=== PATIENT | female | born 2000 | race Caucasian/White ===

== ENCOUNTER 2018-08-17 11:33 | Emergency (ER) | payer OTHER ==
[~2018-08-17] VITALS: Wt 61.0 kg
[~2018-08-17 11:33] MED LIST: ALBU18HF INHALATION; NO CURRENT MEDS
[2018-08-17 11:36] VITALS: BP 127/89; PULSE 119; RESP 20; Wt 61.0 kg
[2018-08-17] MEDS ORDERED: ACETAMINOPHEN 500 MG TAB PO STA (13:01)
[2018-08-17] MEDS ORDERED: IBUPROFEN 600 MG TAB PO ONE (13:30)
[2018-08-17] MEDS ORDERED: PROMETHAZINE/DM (CUP) PO ONE (13:30)
[2018-08-17] MEDS ORDERED: DOXY100T20 PO (14:14)
[2018-08-17] MEDS ORDERED: D-ME473S2 PO (14:14)
--- NOTE | 2018-08-17 14:29 | ERD ---
ER Documentation Chief Complaint Chief Complaint FEVER COUGH AND CONGESTIO FOR THE PAST 4 DAYS WITH MILD SOB HPI This is a 18-year-old female with a nonsignificant past medical history presents ED with complaints of fever and cough times 4 days. Patient admits to body aches, headaches, cough and shortness of breath with prolonged coughing spells as well as ear pain. Denies chest pain, runny nose, sore throat, nausea, vomiting, diarrhea, constipation, abdominal pain. No known drug allergies. ROS All systems reviewed and are negative except as per history of present illness. Medications Home Meds Active Scripts Dextromethorphan Hb-Promethazine Hcl* (Promethazine DM* Syrup) 473 Ml Syrup, 5 ML PO Q6 PRN for COUGH for 5 Days, ML Prov:SOHA SMITH PA-C 08/17/18 Doxycycline Hyclate* (Doxycycline Hyclate*) 100 Mg Tablet.dr, 100 MG PO BID for 10 Days, TAB Prov:SOHA SMITH PA-C 08/17/18 Albuterol Sulfate* (Ventolin HFA*) 18 Gm Hfa.aer.ad, 2 PUFF INHALATION Q4H, #1 INHALER Prov:ROMMEL TRAN MD 09/15/15 Reported Medications [No Current Meds] No Conflict Check 09/06/09 Allergies Allergies: Coded Allergies: No Known Drug Allergies (Verified Allergy, Mild, 08/17/18) PMhx/Soc Medical and Surgical Hx: pt denies Medical Hx, pt denies Surgical Hx History of Surgery: No Hx Neurological Disorder: No Hx Respiratory Disorders: No Hx Cardiac Disorders: No Hx Miscellaneous Medical Probl: No Hx Alcohol Use: No Hx Substance Use: No Hx Tobacco Use: No FmHx Family History: No diabetes Physical Exam Vitals Vital Signs Date Temp Pulse Resp B/P (MAP) Pulse Ox O2 O2 Flow FiO2 Time Delivery Rate 08/17/18 99.9 13:09 08/17/18 99.9 13:09 08/17/18 99.9 119 20 127/89 98 11:36 (102) Physical Exam Physical Exam Vitals signs: Reviewed by me. General: Well developed, well nourished, in no acute distress. Patient is awake and alert. Head: Normocephalic, atraumatic. Eyes: Normal conjunctiva, Pupils PERRLA, EOM intact grossly ENT: Pharynx is clear, Moist mucous membranes, external ears, nose and mouth normal Neck: Supple, no masses, lymphadenopathy or JVD Respiratory: Clear to auscultation bilaterally with no wheezing, rhonchi, rales, no distress Cardiovascular: RRR, no murmurs, rubs, or gallops Neurologic: Alert and oriented, moving all extremities, normal speech, no focal weakness, no cerebellar signs. Normal mentation Skin: warm and dry, No rash Psych: Normal mood Results 24 hrs Current Medications Medications Dose Sig/Efrain Start Time Status Last (Trade) Ordered Route PRN Stop Time Admin Dose Reason Admin 1,000 mg ONCE STAT 08/17/18 DC 08/17/18 Acetaminophen PO 13:01 13:09 (Tylenol 08/17/18 13:02 Tab) Ibuprofen 600 mg ONCE ONCE 08/17/18 DC 08/17/18 (Motrin) PO 13:30 13:09 08/17/18 13:31 Promethazine 5 ml ONCE ONCE 08/17/18 DC 08/17/18 HCl/ PO 13:30 13:16 Dextromethorp 08/17/18 13:31 andres (Phenergan-Dm ) Procedures/MDM EKG, MONITORS, & DIAGNOSTIC IMAGING: [place] [address] Radiology Main Line: [phone] DIAGNOSTIC IMAGING REPORT Patient: JOCELYN HERNANDEZ : 2000 Age: 18 Sex: F MR #: [id number] DOS: 08/17/18 1301 Ordering MD: SOHA SMITH PA-C Location: [facility] Room/Bed: PROCEDURE: XR Chest PA and Lateral CLINICAL INDICATION: Cough and fever TECHNIQUE: PA and Lateral views of the chest were obtained. COMPARISON: None. FINDINGS: Cardiovascular: The cardiovascular silhouette appears unremarkable. Lung Campbell: A focal patch of air space opacification projects to the left hilum and triangulate cyst to the superior segment of the left lower lobe. The lung campbell are otherwise clear. Pleural Spaces: No pneumothorax is identified and no effusion is evident. Osseous Structures: The osseous structures appear intact. Soft Tissues: The soft tissues appear unremarkable. IMPRESSION: Focal air space opacification involving the superior segment of the left lower lobe. No effusion is evident. Physician Laurie Date Time Electronically viewed and signed by Physician Laurie on 08/17/2018 13:56 RH/ CC: SOHA SMITH PA-C [id number] LAB INTERPRETATION: Flu negative ER COURSE: The patient was given Tylenol, promethazine DM The medication was well tolerated and the patient reports improvement in symptoms. The patient was stable throughout ED course. I kept the patient and/or family informed of laboratory and diagnostic imaging results throughout the emergency room course. The patient was promptly evaluated and a treatment plan was devised based on H&P and other data. This plan was discussed with the patient who agreed and had no further questions or concerns prior to discharge. MEDICAL DECISION MAKING: This is a 18-year-old female presents ED with cough and fever times 4 days. Chest x-ray is remarkable for an opacification of the left lower lung. Will treat patient for pneumonia. Discussed with patient and she feels comfortable with close outpatient follow-up. I do not think that patient needs to be admitted to hospital for IV antibiotics at this time. Patient's vitals are stable she can be managed with close outpatient follow-up. Patient has a normal oxygen saturation of 98%. No evidence of sepsis, meningitis, pleural effusion, pneumothorax, tension pneumothorax, pulmonary embolism, among others. keep seen return to ED with any worsening symptoms DISPOSITION PLAN: We discussed follow up with the patient's primary care doctor within 24 to 48 hours. Patient counseled regarding my diagnostic impression and care plan. Prior to discharge all questions answered. Pt agrees with treatment plan and understands strict return precautions. Precautionary instructions provided including instructions to return to the ER if not improving or for any worsening or changing symptoms or concerns. SPECIALIST FOLLOW UP RECOMMENDED: None Patient has been advised to follow up with primary care in 1-2 days. Disclaimer: Inadvertent spelling and grammatical errors are likely due to EHR/dictation software use and do not reflect on the overall quality of patient care. Also, please note that the electronic time recorded on this note does not necessarily reflect the actual time of the patient encounter. Departure Diagnosis: Primary Impression: Pneumonia Pneumonia type: due to unspecified organism Laterality: unspecified laterality Lung location: unspecified part of lung Qualified Codes: J18.9 - Pneumonia, unspecified organism Condition: Stable Patient Instructions: Pneumonia (Adult) Referrals: COMMUNITY CLINICS YOU HAVE RECEIVED A MEDICAL SCREENING EXAM AND THE RESULTS INDICATE THAT YOU DO NOT HAVE A CONDITION THAT REQUIRES URGENT TREATMENT IN THE EMERGENCY DEPARTMENT. FURTHER EVALUATION AND TREATMENT OF YOUR CONDITION CAN WAIT UNTIL YOU ARE SEEN IN YOUR DOCTORS OFFICE WITHIN THE NEXT 1-2 DAYS. IT IS YOUR RESPONSIBILITY TO MAKE AN APPOINTMENT FOR FOLOW-UP CARE. IF YOU HAVE A PRIMARY DOCTOR --you should call your primary doctor and schedule an appointment IF YOU DO NOT HAVE A PRIMARY DOCTOR YOU CAN CALL OUR PHYSICIAN REFERRAL HOTLINE AT IF YOU CAN NOT AFFORD TO SEE A PHYSICIAN YOU CAN CHOSE FROM THE FOLLOWING [facility] [address] [facility] [facility] [address] [address] [place] [address] [facility] [address] [facility] [address] [facility]. [facility] [address] Additional Instructions: Patient advised to return to the ED immediately for new or worsening symptoms. Patient advised to follow up with primary care provider in the next 24-48 hours. Patient verbalized understanding and agrees with treatment plan and course of action. If patient has no primary care they may follow up with one of the [facility] clinics listed on the following page or one of the options listed below [facility] [address] [place] [id number] or [facility] [address] [place] [address] or [facility] [address] [place] [address] SOHA SMITH PA-C Aug 17, 2018 14:29
== END 2018-08-17 14:39 | disposition home or self-care (01) ==
LOC: FTE 11:33
DX: J18.9 Pneumonia, unspecified organism (principal)
CPT/HCPCS: 71046; 87400; Z7502; Z7610